=== PATIENT | male | born 1990 | race Caucasian/White ===

== ENCOUNTER 2022-05-04 12:49 | Emergency (ER) | payer OTHER ==
[2022-05-04 13:37] VITALS: BP 158/100
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
--- NOTE | 2022-05-04 14:27 | XRAY Report ---
PROCEDURE: Clavicle RT INDICATIONS: fall, R shoulder/clavicle pain TECHNIQUE: 2 views of the clavicle were acquired. COMPARISON: None. FINDINGS: Bones: Moderately displaced comminuted mid shaft clavicular fracture is present. Inferior displacemen t of the distal aspect of the clavicle measuring 17 mm. Soft tissues: No suspicious soft tissue calcifications. IMPRESSION: Mid shaft clavicular fracture. Reviewed by: Sirisha Vargas MD on 05/04/2022 2:26 PM PDT Approved by: Sirisha Vargas MD on 05/04/2022 2:26 PM PDT Station ID: [id number]
--- NOTE | 2022-05-04 14:28 | XRAY Report ---
PROCEDURE: Shoulder 3 View RT INDICATIONS: fall, R shoulder pain TECHNIQUE: 3 views of the shoulder were acquired. COMPARISON: None. FINDINGS: Bones: Moderately displaced comminuted mid shaft clavicular fracture is present. No suspicious bony l esions. Visualized ribs appear intact. Soft tissues: No suspicious soft tissue calcifications. IMPRESSION: Mid shaft clavicular fracture. Reviewed by: Sirisha Vargas MD on 05/04/2022 2:26 PM PDT Approved by: Sirisha Vargas MD on 05/04/2022 2:26 PM PDT Station ID: [id number]
== END 2022-05-04 14:51 | disposition home or self-care (01) ==
LOC: ED 12:49
DX: S42.021A Displaced fracture of shaft of right clavicle, initial encounter for closed fracture (principal); V18.4XXA Pedal cycle driver injured in noncollision transport accident in traffic accident, initial encounter; Y93.55 Activity, bike riding; Y99.8 Other external cause status
CPT/HCPCS: 99282; 99283

== ENCOUNTER 2022-11-14 09:26 | Emergency (ER) | payer OTHER ==
--- NOTE | 2022-11-14 11:24 | ED Physician Documentation ---
PD HPI CHEST PAIN - Stated complaint Stated Complaint: CHEST PX, R ARM PX - Chief complaint Chief Complaint: Cardiac - History obtained from History obtained from: Patient - History of Present Illness Timing - onset: How many hours ago (1-2), Today Timing - onset during: Light activity (The patient states he was driving to work and felt the onset of some discomfort and pressure in the right chest radiating to the right shoulder and arm. He denied any physical injury to the area in the last couple of days. Some feeling of dyspnea. Nonpleuritic pain. Came here for evaluation.) Timing - details: Abrupt onset, Still present (much lessened from onset.) Quality: Tightness, Aching Location: Right chest Radiation: Right upper extremity Improved by: No: Rest Worsened by: No: Exertion, Inspiration, Movement Similar symptoms before: No diagnosis (The patient states he has had several episodes like this, 5 discretely in the past year so far and another half dozen last fall and winter. No prior work-up. Went to his primary care about them and is getting referral to cardiology. Appointment not till November.). No: Work up / diagnostics (The patient states he had not had any x-ray or EKG at the primary care.) PD PAST MEDICAL HISTORY - Past Surgical History Past Surgical History: No - Allergies Allergies/Adverse Reactions: Allergies Allergy/AdvReac Type Severity Reaction Status Date / Time No Known Drug Allergies Allergy Verified 11/14/22 09:45 - Social History Does the pt have substance abuse?: No Results - Vitals Vitals: Vital Signs - 24 hr 11/14/22 11/14/22 11/14/22 09:40 11:54 13:29 Temperature 36.6 C Heart Rate 92 90 99 Respiratory 16 18 18 Rate Blood Pressure 151/92 H 145/99 H 134/89 H O2 Saturation 100 99 99 11/14/22 16:14 Temperature Heart Rate 83 Respiratory 18 Rate Blood Pressure 129/91 H O2 Saturation 97 Oxygen O2 Source Room air - Labs Labs: Laboratory Tests 11/14/22 11/14/22 11/14/22 12:09 12:09 12:09 WBC 4.3 L RBC 5.11 Hgb 15.5 Hct 44.1 MCV 86.3 MCH 30.3 MCHC 35.1 RDW 12.5 Plt Count 245 MPV 8.9 Neut # (Auto) 2.4 Lymph # (Auto) 1.5 [place] # (Auto) 0.3 Eos # (Auto) 0.1 Baso # (Auto) 0.0 Absolute Nucleated RBC 0.00 Nucleated RBC % 0.0 ESR Sodium 141 Potassium 4.2 Chloride 105 Carbon Dioxide 26 Anion Gap 10.0 BUN 19 Creatinine 1.0 Estimated GFR (MDRD) 86 L Glucose 94 Calcium 9.6 Magnesium Total Bilirubin 0.5 AST 24 ALT 31 Alkaline Phosphatase 75 Troponin I High Sens 245.0 H* C-Reactive Protein B-Natriuretic Peptide Total Protein 7.5 Albumin 4.6 Globulin 2.9 Albumin/Globulin Ratio 1.6 Lipase 25 Urine Color Urine Clarity Urine pH Ur Specific [place] Urine Protein Urine Glucose (UA) Urine Ketones Urine Occult Blood Urine Nitrite Urine Bilirubin Urine Urobilinogen Ur Leukocyte Esterase Ur Microscopic Review Urine Culture Comments Nasal Adenovirus (PCR) Nasal B. parapertussis DNA (PCR) Nasal Coronavir 229E PCR Nasal Coronavir HKU1 PCR Nasal Coronavir NL63 PCR Nasal Coronavir OC43 PCR Nasal Enterovir/Rhinovir PCR Nasal Influenza B PCR Nasal Influenza A PCR Nasal Parainfluen 1 PCR Nasal Parainfluen 2 PCR Nasal Parainfluen 3 PCR Nasal Parainfluen 4 PCR Nasal RSV (PCR) Nasal B.pertussis DNA PCR Nasal C.pneumoniae (PCR) Ge Human Metapneumo PCR Nasal M.pneumoniae (PCR) Nasal SARS-CoV-2 (PCR) Urine Opiates Screen Ur Oxycodone Screen Urine Methadone Screen Ur Propoxyphene Screen Ur Barbiturates Screen Ur Tricyclics Screen Ur Phencyclidine Scrn Ur Amphetamine Screen U Methamphetamines Scrn U Benzodiazepines Scrn Urine Cocaine Screen U Cannabinoids Screen 11/14/22 11/14/22 11/14/22 12:09 13:35 13:35 WBC RBC Hgb Hct MCV MCH MCHC RDW Plt Count MPV Neut # (Auto) Lymph # (Auto) [place] # (Auto) Eos # (Auto) Baso # (Auto) Absolute Nucleated RBC Nucleated RBC % ESR 1 Sodium Potassium Chloride Carbon Dioxide Anion Gap BUN Creatinine Estimated GFR (MDRD) Glucose Calcium Magnesium Total Bilirubin AST ALT Alkaline Phosphatase Troponin I High Sens 926.9 H* C-Reactive Protein B-Natriuretic Peptide 8 Total Protein Albumin Globulin Albumin/Globulin Ratio Lipase Urine Color Urine Clarity Urine pH Ur Specific [place] Urine Protein Urine Glucose (UA) Urine Ketones Urine Occult Blood Urine Nitrite Urine Bilirubin Urine Urobilinogen Ur Leukocyte Esterase Ur Microscopic Review Urine Culture Comments Nasal Adenovirus (PCR) Nasal B. parapertussis DNA (PCR) Nasal Coronavir 229E PCR Nasal Coronavir HKU1 PCR Nasal Coronavir NL63 PCR Nasal Coronavir OC43 PCR Nasal Enterovir/Rhinovir PCR Nasal Influenza B PCR Nasal Influenza A PCR Nasal Parainfluen 1 PCR Nasal Parainfluen 2 PCR Nasal Parainfluen 3 PCR Nasal Parainfluen 4 PCR Nasal RSV (PCR) Nasal B.pertussis DNA PCR Nasal C.pneumoniae (PCR) Ge Human Metapneumo PCR Nasal M.pneumoniae (PCR) Nasal SARS-CoV-2 (PCR) Urine Opiates Screen Ur Oxycodone Screen Urine Methadone Screen Ur Propoxyphene Screen Ur Barbiturates Screen Ur Tricyclics Screen Ur Phencyclidine Scrn Ur Amphetamine Screen U Methamphetamines Scrn U Benzodiazepines Scrn Urine Cocaine Screen U Cannabinoids Screen 11/14/22 11/14/22 11/14/22 13:35 16:55 16:55 WBC RBC Hgb Hct MCV MCH MCHC RDW Plt Count MPV Neut # (Auto) Lymph # (Auto) [place] # (Auto) Eos # (Auto) Baso # (Auto) Absolute Nucleated RBC Nucleated RBC % ESR Sodium Potassium Chloride Carbon Dioxide Anion Gap BUN Creatinine Estimated GFR (MDRD) Glucose Calcium Magnesium 2.1 Total Bilirubin AST ALT Alkaline Phosphatase Troponin I High Sens C-Reactive Protein < 1.0 B-Natriuretic Peptide Total Protein Albumin Globulin Albumin/Globulin Ratio Lipase Urine Color YELLOW Urine Clarity CLEAR Urine pH 6.5 Ur Specific [place] 1.010 Urine Protein NEGATIVE Urine Glucose (UA) NEGATIVE Urine Ketones NEGATIVE Urine Occult Blood NEGATIVE Urine Nitrite NEGATIVE Urine Bilirubin NEGATIVE Urine Urobilinogen 0.2 (NORMAL) Ur Leukocyte Esterase NEGATIVE Ur Microscopic Review NOT INDICATED Urine Culture Comments NOT INDICATED Nasal Adenovirus (PCR) NOT DETECTED Nasal B. parapertussis DNA (PCR) NOT DETECTED Nasal Coronavir 229E PCR NOT DETECTED Nasal Coronavir HKU1 PCR NOT DETECTED Nasal Coronavir NL63 PCR NOT DETECTED Nasal Coronavir OC43 PCR NOT DETECTED Nasal Enterovir/Rhinovir PCR NOT DETECTED Nasal Influenza B PCR NOT DETECTED Nasal Influenza A PCR NOT DETECTED Nasal Parainfluen 1 PCR NOT DETECTED Nasal Parainfluen 2 PCR NOT DETECTED Nasal Parainfluen 3 PCR NOT DETECTED Nasal Parainfluen 4 PCR NOT DETECTED Nasal RSV (PCR) NOT DETECTED Nasal B.pertussis DNA PCR NOT DETECTED Nasal C.pneumoniae (PCR) NOT DETECTED Ge Human Metapneumo PCR NOT DETECTED Nasal M.pneumoniae (PCR) NOT DETECTED Nasal SARS-CoV-2 (PCR) NOT DETECTED Urine Opiates Screen NEGATIVE Ur Oxycodone Screen NEGATIVE Urine Methadone Screen NEGATIVE Ur Propoxyphene Screen NEGATIVE Ur Barbiturates Screen NEGATIVE Ur Tricyclics Screen NEGATIVE Ur Phencyclidine Scrn NEGATIVE Ur Amphetamine Screen NEGATIVE U Methamphetamines Scrn NEGATIVE U Benzodiazepines Scrn NEGATIVE Urine Cocaine Screen NEGATIVE U Cannabinoids Screen NEGATIVE PD Medical Decision Making - ED course Complexity details: reviewed results, considered differential, d/w patient, d/w area development consultant ([facility] does have cardiac beds available. At this point we need to talk to the baby stroller rental clerk who is in a intervention and will call back when he is available.) ED course: Relatively young male with reported discrete episodes of chest discomfort and tightness rating to the arm and shoulder. These have occurred in the past at rest and he has not had any exertion related chest pain or dyspnea. However the episode this morning is continued more than other episodes and here for evaluation. His EKG is normal. He does not look in distress. Vital signs are normal with blood pressure heart rate and oxygen saturations. However he is having chest discomfort to the arm so we will get labs. Chest x-ray did not show any acute abnormalities with a normal heart size and no effusions no infiltrates. His blood test however showed an elevated troponin. His kidney function and BNP are normal. Given his relatively young age and lower risk of atherosclerotic heart disease, I would be more concerned for other causes for chest discomfort and elevated troponin. I therefore ordered a chest CTA. The chest CTA gave the results and report of no acute abnormalities. Thoracic aorta is normal without any dissection. No pulmonary emboli noted. Lung smith are clear. Repeat troponin was done to show any interval change and did show a considerable increase from the initial 245 to now 700s. This does appear to be an acute cardiac event with some myocardial injury. Without other obvious causes, I would have to assume an occlusive process. He is started on heparin as well as nitro and given atorvastatin. He did have aspirin this morning himself. We will give a beta-judie as well. At this point I believe the patient needs more acute Cardiologic assessment of at least an echocardiogram if not heart cath. I would defer to cardiology judgment. However we are unable to perform either of those here today and cannot do reasonable stress test nor heart cath at all. We will look for other facilities who might be able to accept him in transfer. I did advise the patient he had a heart event going on and presume small heart attack at this point. I gave him the expectation that we would be looking for transfer for more appropriate cardiac work-up. - Critical Care Time(min): 40 Time Includes: Direct patient care, Document care, Coordinate care, Medical consult Data interpretation: Labs, CXR (acute chest pain with elevated troponin c/w acute NM. ) Procedures excluded from critical care time: EKG Departure - Departure Disposition: 02 Transfer Acute Care Hosp Clinical Impression: Elevated troponin, NSTEMI (non-ST elevated myocardial infarction) Chest pain Qualifiers: Chest pain type: unspecified Qualified Code(s): R07.9 - Chest pain, unspecified Condition: Stable Record reviewed to determine appropriate education?: Yes Discharge Date/Time: 11/14/22 18:12
[2022-11-14 12:16] LABS: BASOPHILS % (AUTO) 0.9 %; EOSINOPHILS # (AUTO) 0.1 10^3/uL (0.0-0.7); EOSINOPHILS % (AUTO) 1.2 %; HCT - HEMATOCRIT 44.1 % (42.0-52.0); HGB - HEMOGLOBIN 15.5 g/dL (14.0-18.0); LYMPHOCYTES # (AUTO) 1.5 10^3/uL (1.5-3.5); LYMPHOCYTES % (AUTO) 35.7 %; MEAN CORPUSCULAR HEMOGLOBIN 30.3 pg (27.0-31.0); MEAN CORPUSCULAR HGB CONC 35.1 g/dL (32.0-36.0); MEAN CORPUSCULAR VOLUME 86.3 fL (80.0-94.0); MEAN PLATELET VOLUME 8.9 fL (7.4-11.4); MONOCYTES # (AUTO) 0.3 10^3/uL (0.0-1.0); NEUTROPHILS # (AUTO) 2.4 10^3/uL (1.5-6.6); PLT - PLATELET COUNT 245 10^3/uL (130-450); RED BLOOD COUNT 5.11 10^6/uL (4.70-6.10); RED CELL DISTRIBUTION WIDTH 12.5 % (12.0-15.0); WHITE BLOOD COUNT 4.3 x10^3/uL (4.8-10.8)
--- NOTE | 2022-11-14 12:25 | XRAY Report ---
PROCEDURE: Chest 1 View X-Ray INDICATIONS: chest pain TECHNIQUE: One view of the chest was acquired. COMPARISON: None. FINDINGS: Surgical changes and devices: None. Lungs and pleura: No pleural effusions or pneumothorax. Lungs are clear. Mediastinum: Mediastinal contours appear normal. Heart size is normal. Bones and chest wall: No suspicious bony lesions. Overlying soft tissues appear unremarkable. IMPRESSION: No acute pulmonary process. Reviewed by: Emilee Whitley MD on 11/14/2022 12:23 PM PDT Approved by: Emilee Whitley MD on 11/14/2022 12:23 PM PDT Station ID: [id number]
[2022-11-14] MEDS ORDERED: NITROGLYCERIN 0.2 MG/HR PATCH TOP STA (12:59)
[2022-11-14 13:15] LABS: ALBUMIN 4.6 g/dL (3.2-5.5); ALBUMIN/GLOBULIN RATIO 1.6 (1.0-2.2); BILIRUBIN,TOTAL 0.5 mg/dL (0.2-1.0); CALCIUM 9.6 mg/dL (8.5-10.3); POTASSIUM 4.2 mmol/L (3.5-5.0); TOTAL PROTEIN 7.5 g/dL (6.7-8.2)
[2022-11-14] MEDS ORDERED: iohexoL-300 100 ML VIAL ONE (13:28)
[2022-11-14 13:57] LABS: MAGNESIUM 2.1 mg/dL (1.7-2.8)
[2022-11-14 14:06] LABS: CRP - C-REACTIVE PROTEIN < 1.0 mg/dL (0-1.0)
[2022-11-14] MEDS ORDERED: ATORVASTATIN 40 MG TABLET PO STA (14:07)
--- NOTE | 2022-11-14 14:10 | CT Report ---
PROCEDURE: ANGIO CHEST W/WO INDICATIONS: episodic chest pain. elevated trop. Eval aorta. CONTRAST: 80ml Omnipaque 300 TECHNIQUE: After the administration of intravenous contrast, 2 mm axial images were acquired from the pulmonary apices to the posterior costophrenic angles during the arterial phase. In addition, 1 mm lung kernel and 5 mm soft tissue kernel reconstructions were performed. 3-dimensional coronal oblique maximum int ensity projection (MIP) reformats, 8 mm axial MIP, and 5 mm coronal and sagittal MPR reformats were t hen performed through the thorax. For radiation dose reduction, the following was used: automated exp osure control, adjustment of mA and/or kV according to patient size. COMPARISON: None. FINDINGS: Image quality: Excellent. Pulmonary arteries: Pulmonary arteries are normal in size, and demonstrate no intraluminal filling d efects to suggest central pulmonary embolism. Lungs and pleura: Lungs are clear. No pleural effusions or pneumothorax. Central and peripheral ai rways are patent. Mediastinum: Heart size is normal, without pericardial effusion. No mediastinal or hilar adenopathy . Thoracic aorta is normal in caliber and enhancement. Esophagus is normal in caliber, without hiat al hernia. Bones and chest wall: Healed right clavicle and rib fractures. No suspicious bone lesion. No supracl avicular lymphadenopathy. Abdomen: Visualized upper abdominal solid organs appear normal in the early arterial phase of enhanc ement. IMPRESSION: No acute finding in the chest. Reviewed by: Raghav Person MD on 11/14/2022 2:08 PM PDT Approved by: Raghav Person MD on 11/14/2022 2:08 PM PDT Station ID: [id number]
[2022-11-14] MEDS ORDERED: HEPARIN 25000UNITS/500ML (D5W) 25,000 UNIT/500 ML BAG IV SCH ×2 (15:00→16:00)
[2022-11-14] MEDS ORDERED: CLOPIDOGREL 300 MG TABLET PO STA (15:36)
[2022-11-14] MEDS ORDERED: METOPROLOL 5 MG/5 ML VIAL IVP STA (15:36)
[2022-11-14] MEDS ORDERED: iohexoL-300 100 ML VIAL IVP ONE (15:46)
[2022-11-14 16:15] VITALS: BP 129/91
--- NOTE | 2022-11-14 16:43 | ED Physician Documentation ---
ED Addendum - Addendum Addendum: 11/14/22 16:42 Patient was signed out to me by Dr. Chatman awaiting callback from [facility] cardiology for elevated troponin. I spoke with Dr. Torres and relayed the history to him. Unclear etiology of the elevated troponin, he agrees with transfer and recommends admission to the hospitalist. I spoke with Dr. Riddle, the Hospitalist at [facility] who graciously accepts in transfer. Patient maintained on a heparin drip and will be transferred to [facility] for further care. COBRA forms completed. This document was made in part using voice recognition software. While efforts are made to proofread this document, sound alike and grammatical errors may occur. 11/14/22 17:09 A urine tox screen was added per request from [facility], as well as a respiratory PCR. Departure - Departure Disposition: 02 Transfer Acute Care Hosp Clinical Impression: Elevated troponin, NSTEMI (non-ST elevated myocardial infarction) Chest pain Qualifiers: Chest pain type: unspecified Qualified Code(s): R07.9 - Chest pain, unspecified Condition: Stable
[2022-11-14 17:12] LABS: MUDS CUTOFF CONCENTRATIONS CUTOFF CONC BELOW:
[2022-11-14 17:15] LABS: BILIRUBIN,URINE NEGATIVE (NEGATIVE); GLUCOSE, URINE (UA) NEGATIVE (NEGATIVE); KETONES,URINE (UA) NEGATIVE (NEGATIVE); LEUKOCYTE ESTERASE, URINE NEGATIVE (NEGATIVE); NITRITE,URINE NEGATIVE (NEGATIVE); OCCULT BLOOD,URINE NEGATIVE (NEGATIVE); PH,URINE 6.5 PH (5.0-7.5); PROTEIN,URINE NEGATIVE (NEGATIVE); UROBILINOGEN,URINE 0.2 (NORMAL) E.U./dL (NORMAL)
[2022-11-14 17:16] LABS: CLARITY,URINE CLEAR (CLEAR)
[2022-11-14 17:23] LABS: AMPHETAMINE SCREEN,URINE NEGATIVE (NEGATIVE); BARBITURATE SCREEN,UR NEGATIVE (NEGATIVE); BENZODIAZEPINES SCREEN, URINE NEGATIVE (NEGATIVE); COCAINE SCREEN URINE NEGATIVE (NEGATIVE); METHADONE SCREEN, URINE NEGATIVE (NEGATIVE); METHAMPHETAMINES SCREEN, URINE NEGATIVE (NEGATIVE); OPIATE SCREEN, URINE NEGATIVE (NEGATIVE); OXYCODONE SCREEN, URINE NEGATIVE (NEGATIVE); PROPOXYPHENE SCREEN, URINE NEGATIVE (NEGATIVE); THC CANNABINOID SCREEN, URINE NEGATIVE (NEGATIVE); TRICYCLIC ANTIDEPRESSANT,URINE NEGATIVE (NEGATIVE)
[2022-11-14 18:02] LABS: B. PARAPERTUSSIS- RESP PCR PAN NOT DETECTED; B. PERTUSSIS- RESP PCR PANEL NOT DETECTED; C. PNEUMONIAE- RESP PCR PANEL NOT DETECTED; CORONAVIRUS 229E-RESP PCR NOT DETECTED; CORONAVIRUS HKU1-RESP PCR NOT DETECTED; CORONAVIRUS NL63-RESP PCR NOT DETECTED; CORONAVIRUS OC43-RESP PCR NOT DETECTED; HUMAN METAPNEUMOVIRUS NOT DETECTED; INFLUENZA A- RESP PCR PANEL NOT DETECTED; INFLUENZA B - RESP PCR PANEL NOT DETECTED; M. PNEUMONIAE- RESP PCR PANEL NOT DETECTED; PARAINFLUENZA VIRUS 1 NOT DETECTED; PARAINFLUENZA VIRUS 2 NOT DETECTED; PARAINFLUENZA VIRUS 3 NOT DETECTED; PARAINFLUENZA VIRUS 4 NOT DETECTED; RHINOVIRUS/ENTEROVIRUS NOT DETECTED; RSV- RESP PCR PANEL NOT DETECTED; SARS-CoV-2 -RESP PCR PANEL NOT DETECTED
== END 2022-11-14 18:12 | disposition short-term general hospital (02) ==
LOC: ED 09:26
DX: I21.4 Non-ST elevation (NSTEMI) myocardial infarction (principal); R77.8 Other specified abnormalities of plasma proteins; Z20.822 Contact with and (suspected) exposure to COVID-19
CPT/HCPCS: 36415; 71045; 71275; 80053; 80306; 81003; 83690; 83735; 83880; 84484; 85025; 85651; 86140; 87633; 93005; 96374; 96375; 99285; 99291; A9270; Q9967; 81001; 87086

== ENCOUNTER 2022-11-14 18:07 | Outpatient (CLI) | payer OTHER | END 2022-11-14 23:59 | disposition short-term general hospital (02) | LOC: EMS 18:07 | PROVIDERS: ATTEND Emergency Medicine | DX: I21.4 Non-ST elevation (NSTEMI) myocardial infarction (principal) | CPT/HCPCS: A0425; A0426 ==

== ENCOUNTER 2023-04-10 11:15 | Outpatient (CLI) | payer OTHER | END 2023-04-10 23:59 | disposition critical access hospital (66) | LOC: EMS 11:15 | DX: R07.9 Chest pain, unspecified (principal); M79.601 Pain in right arm; R42 Dizziness and giddiness | CPT/HCPCS: A0425; A0427 ==

== ENCOUNTER 2023-04-10 11:48 | Emergency (ER) | payer OTHER ==
[2023-04-10 12:59] LABS: BASOPHILS % (AUTO) 0.7 %; EOSINOPHILS % (AUTO) 0.4 %; HCT - HEMATOCRIT 43.5 % (42.0-52.0); HGB - HEMOGLOBIN 15.1 g/dL (14.0-18.0); LYMPHOCYTES # (AUTO) 1.2 10^3/uL (1.5-3.5); LYMPHOCYTES % (AUTO) 20.4 %; MEAN CORPUSCULAR HGB CONC 34.7 g/dL (32.0-36.0); MEAN CORPUSCULAR VOLUME 86.5 fL (80.0-94.0); MONOCYTES # (AUTO) 0.3 10^3/uL (0.0-1.0); NEUTROPHILS # (AUTO) 4.1 10^3/uL (1.5-6.6); NEUTROPHILS % (AUTO) 72.3 %; PLT - PLATELET COUNT 243 10^3/uL (130-450); RED BLOOD COUNT 5.03 10^6/uL (4.70-6.10); RED CELL DISTRIBUTION WIDTH 12.3 % (12.0-15.0); WHITE BLOOD COUNT 5.6 x10^3/uL (4.8-10.8)
--- NOTE | 2023-04-10 13:04 | ED Physician Documentation ---
PD HPI CHEST PAIN - Stated complaint Stated Complaint: CP - Chief complaint Chief Complaint: Cardiac - History obtained from History obtained from: Patient - History of Present Illness Timing - onset: How many hours ago (2-3 hours ago this moring and had some chest pain at rest last evening, lasting for 10-15 minutes. Duration this moring was also 10-15 minutes.), Today Timing - onset during: Rest, Light activity Timing - duration: Minutes Timing - details: Abrupt onset, Now resolved Quality: Tightness, Aching Location: Substernal, Right chest Radiation: No: Jaw, Neck, Back Improved by: Rest Worsened by: No: Exertion, Inspiration, Movement, Palpation Associated symptoms: No: Shortness of air, Nausea, Feeling faint / dizzy Similar symptoms before: Diagnosis (presumed coronary artery spasms as heart cath did not show stenoses/CAD but he had significant Troponin elevation with episdoe October 2022.) Review of Systems Constitutional: denies: Fever, Chills Nose: denies: Rhinorrhea / runny nose, Congestion Throat: denies: Sore throat Cardiac: denies: Palpitations, Pedal edema, Calf pain Respiratory: denies: Dyspnea, Cough GI: denies: Abdominal Pain, Nausea, Vomiting PD PAST MEDICAL HISTORY - Past Medical History Cardiovascular: Other (coronary artery spasms. ) Respiratory: None Neuro: None Endocrine/Autoimmune: None - Past Surgical History Past Surgical History: No - Present Medications Home Medications: Ambulatory Orders Medication Instructions Recorded Confirmed Amlodipine Besylate [Norvasc] 2.5 mg PO DAILY 04/10/23 04/10/23 - Allergies Allergies/Adverse Reactions: Allergies Allergy/AdvReac Type Severity Reaction Status Date / Time No Known Drug Allergies Allergy Verified 11/14/22 09:45 - Social History Does the pt smoke?: No Does the pt have substance abuse?: No PD ED PE NORMAL - Vitals Vital signs reviewed: Yes - General General: Alert and oriented X 3, No acute distress, Well developed/nourished - Neck Neck: Supple, no meningeal sign, No adenopathy - Cardiac Cardiac: RRR, No murmur - Respiratory Respiratory: No respiratory distress, Clear bilaterally - Abdomen Abdomen: Soft, Non tender - Derm Derm: Normal color, Warm and dry - Extremities Extremities: No edema, No calf tenderness / cord - Neuro Neuro: Alert and oriented X 3, No motor deficit, Normal speech Results - Vitals Vitals: Vital Signs - 24 hr 04/10/23 04/10/23 04/10/23 12:02 12:09 12:38 Temperature 99.3 C H Heart Rate 88 91 Respiratory 20 22 Rate Blood Pressure 137/90 H 142/88 H Blood Pressure 137/90 H [Left] O2 Saturation 99 100 04/10/23 04/10/23 04/10/23 13:08 13:30 14:09 Temperature Heart Rate 88 87 80 Respiratory 16 21 14 Rate Blood Pressure 131/91 H 152/108 H 138/85 H Blood Pressure [Left] O2 Saturation 100 98 97 Oxygen O2 Source Room air - EKG (time done) 12:12 EKG releavant findings:: EKG personally interpreted by author of this note. Relevant findings are: Rate: Rate (enter#) (84) Rhythm: NSR [place]: Normal, Anterior hemiblock Intervals: Normal CA QRS: Normal Ischemia: Normal ST segments. No: ST elevation c/w ischemia, ST depression - Labs Labs: Laboratory Tests 04/10/23 04/10/23 12:55 12:55 WBC 5.6 RBC 5.03 Hgb 15.1 Hct 43.5 MCV 86.5 MCH 30.0 MCHC 34.7 RDW 12.3 Plt Count 243 MPV 9.0 Neut # (Auto) 4.1 Lymph # (Auto) 1.2 L [place] # (Auto) 0.3 Eos # (Auto) 0.0 Baso # (Auto) 0.0 Absolute Nucleated RBC 0.00 Nucleated RBC % 0.0 Sodium 139 Potassium 4.3 Chloride 105 Carbon Dioxide 28 Anion Gap 6.0 BUN 18 Creatinine 0.9 Estimated GFR (MDRD) 97 Glucose 99 Calcium 9.6 Total Bilirubin 0.6 AST 18 ALT 22 Alkaline Phosphatase 75 Troponin I High Sens 8.4 Total Protein 7.3 Albumin 4.8 Globulin 2.5 Albumin/Globulin Ratio 1.9 Lipase 8 L - Rads (name of study) chest xray Relevant Findings:: Prelim report reviewed, EMP independent interpretation of test (no acute process) PD Medical Decision Making - ED course Complexity details: reviewed old records (had ED evaluation 11/14/22 with very elevated troponin with CP episode. Transferred from [facility] to [facility] for further testing. That was the lead up to getting heart cath. ), reviewed results (CXR and ECG are okay. Normal troponin. He apparently has had chest pain symptoms previously as he states workup with ECHO, stress testing, then had heart cath October 2022 without any stenoses per patient. Dx as presumed coronary artery spasms, according to pt, and Rx with amlodipine (ca judie). ), considered differential, d/w patient Reviewed Lab Results: normal troponin and lytes/renal function. No sisgns of myocardial injury with this chest pain episode. Consider if coronary spasms as presumed by cardiology. Pt to text [employer] office to discuss if they want increase calclium judie, or add nitrate/etc. Departure - Departure Disposition: Home, Self Care Clinical Impression: Chest pain Condition: Stable Record reviewed to determine appropriate education?: Yes Instructions: ED Chest Pain Atypical Unkn Cause Comments: Your EKG does not show any acute abnormalities. Your chest x-ray is clear without any signs of lung abnormalities nor heart failure. Your troponin is negative, not showing any signs of heart muscle injury. At this point stay well-hydrated. Continue with your usual medications. Contact your [employer] research associate office later today or tomorrow to see if they suggest any change in your medications given the was increased episodes of the chest discomfort lately. Return to the ER as needed. Forms: PCP List Discharge Date/Time: 04/10/23 14:34
[2023-04-10 13:13] LABS: ALBUMIN 4.8 g/dL (3.2-5.5); ALBUMIN/GLOBULIN RATIO 1.9 (1.0-2.2); BILIRUBIN,TOTAL 0.6 mg/dL (0.2-1.0); CALCIUM 9.6 mg/dL (8.5-10.3); CREATININE 0.9 mg/dL (0.6-1.3); POTASSIUM 4.3 mmol/L (3.5-4.5); TOTAL PROTEIN 7.3 g/dL (6.4-8.9)
[2023-04-10 13:19] LABS: TROPONIN I HIGH SENSITIVITY 8.4 ng/L (2.3-19.7)
--- NOTE | 2023-04-10 13:26 | XRAY Report ---
PROCEDURE: Chest 1 View X-Ray INDICATIONS: Chest Pain TECHNIQUE: One view of the chest was acquired. COMPARISON: Chest radiograph 11/14/2022 FINDINGS: Surgical changes and devices: None. Lungs and pleura: No pleural effusions or pneumothorax. Lungs are clear. Mediastinum: Mediastinal contours appear normal. Heart size is normal. Bones and chest wall: Remote right mid clavicle fracture. Overlying soft tissues appear unremarkabl e. IMPRESSION: No acute cardiopulmonary process. Reviewed by: Armando Flores MD on 04/10/2023 1:24 PM PDT Approved by: Armando Flores MD on 04/10/2023 1:24 PM PDT Station ID: [id number]
[2023-04-10 14:10] VITALS: BP 138/85; O2SAT 97
== END 2023-04-10 14:34 | disposition home or self-care (01) ==
LOC: EDUNIT# → ED 11:48
DX: R07.89 Other chest pain (principal)
CPT/HCPCS: 36415; 80053; 83690; 84484; 85025; 93005; 99283; 99284